=== PATIENT | male | born 1955 | race Hispanic/Latino ===

== ENCOUNTER 2023-11-02 02:44 | Emergency (ER) | payer OTHER ==
[2023-11-02] MEDS ORDERED: HYDROcodone/Acetaminophen 5/325 mg Tablet ONE ×2 (04:06→06:45)
== END 2023-11-02 05:30 | disposition home or self-care (01) ==
LOC: CSHERS 02:44
DX: T83.091A Other mechanical complication of indwelling urethral catheter, initial encounter (principal); I11.0 Hypertensive heart disease with heart failure; I50.32 Chronic diastolic (congestive) heart failure; E78.5 Hyperlipidemia, unspecified; Z79.899 Other long term (current) drug therapy
CPT/HCPCS: 99283

== ENCOUNTER 2024-01-18 18:09 | Emergency (ER) | payer OTHER, MEDICAID ==
[2024-01-18] MEDS ORDERED: Acetaminophen 500 MG TAB ONE (19:18)
== END 2024-01-18 19:09 | disposition home or self-care (01) ==
LOC: CSHERS 18:09
DX: T83.091A Other mechanical complication of indwelling urethral catheter, initial encounter (principal); I10 Essential (primary) hypertension; Y73.8 Miscellaneous gastroenterology and urology devices associated with adverse incidents, not elsewhere classified
CPT/HCPCS: 99283

== ENCOUNTER 2024-01-31 00:26 | Emergency (ER) | payer MEDICARE, OTHER | END 2024-01-31 01:42 | disposition home or self-care (01) | LOC: CSHERS 00:26 | DX: T83.091A Other mechanical complication of indwelling urethral catheter, initial encounter (principal); I11.0 Hypertensive heart disease with heart failure; I50.32 Chronic diastolic (congestive) heart failure; I25.10 Atherosclerotic heart disease of native coronary artery without angina pectoris; E78.5 Hyperlipidemia, unspecified; Z86.73 Personal history of transient ischemic attack (TIA), and cerebral infarction without residual deficits; Z95.5 Presence of coronary angioplasty implant and graft; Z95.1 Presence of aortocoronary bypass graft | CPT/HCPCS: 51702; 99283 ==